=== PATIENT | female | born 1960 | race Caucasian/White ===

== ENCOUNTER 2019-06-03 11:10 | Emergency (ER) | payer BC ==
[2019-06-03 11:48] VITALS: BP 154/68
--- NOTE | 2019-06-03 12:13 | UC ---
Abdominal Pain Female HPI - HPI Summary HPI Summary: 59-year-old female presents with onset of epigastric discomfort and bloating. Patient states that she has been followed by gastroenterology for some chronic constipation however her current symptoms are different than what she has had with the constipation. States last night she developed a subjective fever and chills. States she has been able to eat and drink although has a decreased appetite at this time. She states that throughout the day today the abdominal bloating seems to be getting worse. States it feels like she is gained 30-40 pounds throughout the day. Last bowel movement was this morning. States it was a normal color and consistency for her. Denies abdominal pain, nausea, vomiting, blood in stool, melena, or urinary symptoms. - History of Current Complaint Chief Complaint: UCAbdominalPain Stated Complaint: FEVER,ABD DISCOMFORT Time Seen by Provider: 06/03/19 12:11 Hx Obtained From: Patient Pain Intensity: 0 Allergies/Adverse Reactions: Allergies Allergy/AdvReac Type Severity Reaction Status Date / Time amoxicillin [From Augmentin] Allergy Hives Verified 06/03/19 11:39 clavulanic acid Allergy Hives Verified 06/03/19 11:39 [From Augmentin] Home Medications: Home Medications Doxylamine/Phenylep/Dm/Aspirin [[place] Day-Night Tab Eff] 1 each PO ONCE 06/03/19 [History Confirmed 06/03/19] Hydrochlorothiazide TAB* [Hydrodiuril TAB*] 25 mg PO DAILY 06/03/19 [History Confirmed 06/03/19] Linaclotide [Linzess] 145 mcg PO DAILY 06/03/19 [History Confirmed 06/03/19] Losartan Potassium 100 mg PO DAILY 06/03/19 [History Confirmed 06/03/19] Potassium Chlor TAB* [Klor Con ER TAB*] 10 meq PO DAILY 06/03/19 [History Confirmed 06/03/19] Simvastatin 20 mg PO DAILY 06/03/19 [History Confirmed 06/03/19] PMH/Surg Hx/FS Hx/Imm Hx Endocrine History: Dyslipidemia Cardiovascular History: Hypertension GI/ History: Other - Chronic constipation - Surgical History Surgical History: Yes Surgery Procedure, Year, and Place: tubaligation. 1 1/2 ovaries removed- cysts - Family History Known Family History: Positive: Non-Contributory - Social History Occupation: Employed Full-time Lives: Alone Alcohol Use: Occasionally Substance Use Type: None Smoking Status (MU): Never Smoked Tobacco Review of Systems All Other Systems Reviewed And Are Negative: Yes Constitutional: Positive: Fever, Chills Skin: Positive: Negative Respiratory: Positive: Negative Cardiovascular: Positive: Negative Gastrointestinal: Positive: Abdominal Pain - Discomfort and bloating. Negative : Vomiting, Diarrhea, Nausea Genitourinary: Negative: Dysuria, Hematuria, Frequency, Urgency Musculoskeletal: Positive: Negative Neurological: Positive: Negative Is Patient Immunocompromised?: No Physical Exam - Summary Physical Exam Summary: GENERAL APPEARANCE: Alert and cooperative, obese female who appears to be in no acute distress. CARDIAC: Normal S1 and S2. No S3, S4 or murmurs. Rhythm is regular. There is no peripheral edema, cyanosis or pallor. Extremities are warm and well perfused. Capillary refill is less than 2 seconds. Peripheral pulses intact. LUNGS: Clear to auscultation without rales, rhonchi, wheezing or diminished breath sounds. ABDOMEN: Positive bowel sounds. Soft, nondistended, nontender. No guarding or rebound. No masses or hepatosplenomegally. No CVA tenderness. MUSKULOSKELETAL: ROM intact to all extremities. No joint erythema or tenderness. Normal muscular development. Normal gait. SKIN: Skin normal color, texture and turgor with no lesions or eruptions. Triage Information Reviewed: Yes Vital Signs: Initial Vital Signs Temp 99.5 F 06/03/19 11:43 Pulse 71 06/03/19 11:43 Resp 18 06/03/19 11:43 BP 154/68 06/03/19 11:43 Pulse Ox 99 06/03/19 11:43 Vital Signs Reviewed: Yes Abd Pain Female Course/Dx - Course Course Of Treatment: 59-year-old female presents with onset of epigastric discomfort and bloating. Patient states that she has been followed by gastroenterology for some chronic constipation however her current symptoms are different than what she has had with the constipation. States last night she developed a subjective fever and chills. States she has been able to eat and drink although has a decreased appetite at this time. She states that throughout the day today the abdominal bloating seems to be getting worse. States it feels like she is gained 30-40 pounds throughout the day. Last bowel movement was this morning. States it was a normal color and consistency for her. Denies abdominal pain, nausea, vomiting, blood in stool, melena, or urinary symptoms. Afebrile. Hypertensive otherwise vital signs stable. Patient's overall exam was unremarkable. I discussed with the patient that I have a low suspicion for any acute abdominal pathology however with her progressively worsening symptoms I cannot fully rule this out at this time. I'm recommending that she go to the emergency room for further evaluation. Patient is agreeable to this and is electing to transport via private vehicle. - Differential Dx/Diagnosis Differential Diagnosis: Bowel Obstruction, Constipation, Gall Bladder Disease, Pancreatitis, Peptic Ulcer Disease Provider Diagnosis: Acute abdominal complaint Discharge ED - Sign-Out/Discharge Documenting (check all that apply): Patient Departure All imaging exams completed and their final reports reviewed: No Studies - Discharge Plan Condition: Stable Disposition: HOME-RECOMMEND TO ED Patient Education Materials: Acute Abdominal Pain (ED) Referrals: Radha Marie MD [Primary Care Provider] - Additional Instructions: Your exam in the clinic today and her vital signs were normal however with the reports of progressively worsening symptoms I am recommending that you be evaluated in the emergency room at this time. Go directly to the emergency room from here. Do not eat or drink anything until after you have been evaluated. - Billing Disposition and Condition Condition: STABLE Disposition: Home-Recommend to ED - Attestation Statements Provider Attestation: I was available for consult. This patient was seen by the [facility]. The patient was not presented to, seen by, or examined by me. -Steve
== END 2019-06-03 12:27 | disposition home health service (06) ==
LOC: UCCORT 11:10
DX: R10.13 Epigastric pain (principal); E78.5 Hyperlipidemia, unspecified; I10 Essential (primary) hypertension
CPT/HCPCS: 99212; G0463